=== PATIENT | female | born 1995 | race Caucasian/White ===

== ENCOUNTER 2017-05-29 20:01 | Emergency (ER) | END 2017-05-30 01:01 | disposition home or self-care (01) ==

== ENCOUNTER 2017-08-05 14:34 | Emergency (ER) | END 2017-08-05 18:21 | disposition home or self-care (01) ==

== ENCOUNTER 2019-04-07 11:24 | Emergency (ER) | payer OTHER ==
[~2019-04-07] VITALS: Ht 165.1 cm; Wt 65.0 kg
[~2019-04-07 11:24] MED LIST: CEPH-443 PO; IBUP-1542 PO; METO10TA92 PO
[2019-04-07 12:04] VITALS: BP 123/75; PULSE 94; RESP 18; Ht 165.1 cm; Wt 65.0 kg
== END 2019-04-07 12:40 | disposition home or self-care (01) ==
LOC: E/R 11:24
DX: R51 Headache (principal)
CPT/HCPCS: 99282